=== PATIENT | female | born 1985 | race Caucasian/White ===

== ENCOUNTER 2017-11-18 21:26 | Emergency (ER) | payer OTHER ==
[2017-11-18 21:40] VITALS: BP 135/69; PULSE 73; TEMP 98; BMI 28.3
--- NOTE | 2017-11-18 21:52 | PDOC ---
Attending Attestation - HPI HPI: 11/19/17 01:01 The patient is a 32 year old female with a significant past medical history of hyperlipidemia, anemia and scoliosis who presents to the emergency department for evaluation of right side pain. The patient reports a 2 week history of moderate right sided pain. She describes the pain as intermittent, dull, ranked 7/10 in severity. Pt reports right side pain is exacerbated when bends over or stands straight, and reports alleviation when seated. The patient reports a 3 day history of dysuria. She reports a decrease in appetite because of her anxiety surrounding her current medical condition. Pt reports an associated symptom of nausea. Of note, the patients LMP was 11/13/17, but notes it was heavier than normal, lasting 10 days. The patient denies history of kidney stones, chest pain, shortness of breath, headache, and dizziness. Denies fever, chills, vomiting, diarrhea, melanoma, and constipation. Denies hematuria, and urinary urgency/frequency. Allergies: NKDA. Social History: No reported alcohol, cigarette, or drug use. Surgical History: PCP: Dr. Karma Curry - Physicial Exam PE: GENERAL: Afebrile. Awake, alert, and fully oriented, in no acute distress HEAD: No signs of trauma EYES: PERRLA, EOMI, sclera anicteric, conjunctiva clear ENT: Auricles normal inspection, hearing grossly normal, nares patent, oropharynx clear without exudates. Moist mucosa NECK: Normal ROM, supple. LUNGS: Breath sounds equal, clear to auscultation bilaterally. No wheezes, and no crackles HEART: Regular rate and rhythm, normal S1 and S2, no murmurs, rubs or gallops ABDOMEN: Soft, nontender, normoactive bowel sounds. No guarding, no rebound. No masses EXTREMITIES: Normal range of motion, no edema. No clubbing or cyanosis. No cords, erythema, or tenderness NEUROLOGICAL: Cranial nerves II through XII grossly intact. Normal speech, normal gait SKIN: Warm, Dry, normal turgor, no rashes or lesions noted. <Jana Duran - Last Filed: 11/19/17 01:01> - Resident Resident Name: José Luis Titus - ED Attending Attestation I have performed the following: I have examined & evaluated the patient, The case was reviewed & discussed with the resident, I agree w/resident's findings & plan - Medical Decision Making 11/18/17 23:17 Pt comes with 2 weeks of right flank and side pain. 3 days of dysuria. No fam hx or personal hx of stones. SHe will have labs and UA and UCG. We will get a renal protocol CT scan. 11/19/17 02:41 Patient Name: JOSH GARCIA THIS IS A PRELIMINARY REPORT FROM [facility] DATE OF SERVICE: 2017-11-19 01:35:03 IMAGES: [id number] EXAM: CT abdomen and pelvis without contrast HISTORY: Right sided abdominal pain and dysuria COMPARISON: None. FINDINGS: Abdomen Liver: Normal Spleen: Normal Pancreas: Normal Gallbladder: Normal Stomach: Normal Small bowel: Normal Large bowel: Normal Appendix: Normal Adrenals:Normal Kidneys: There are small bilateral nonobstructing calyceal stones. There is some renal medullary. Density suggesting medullary sponge kidney Vascular: Normal Lymphatic: Normal Peritoneal: No free peritoneal air or fluid Pelvis: Uterus: normal Rectum: Normal Bladder: Normal The inferior thorax: Normal General: Skeletal: Normal Abdominal wall: Normal IMPRESSION: Nephrolithiasis Individualized dose optimization techniques were used for this CT. THIS DOCUMENT HAS BEEN ELECTRONICALLY SIGNED 11/20/17 04:17 Pt is stable for discharge. <Lisette Patel - Last Filed: 11/20/17 04:18> Attestations - Attestations Documentation prepared by Jana Duran, acting as medical administrative assistant for Lisette Patel MD. <Jana Duran - Last Filed: 11/19/17 01:01>
[2017-11-18] MEDS ORDERED: morphine SULFATE 4 MG/ML VIAL ONE (22:36)
[2017-11-18] MEDS: morphine CARPU-JECT 4 MG/1 ML DISP.SYRIN IVPUSH ONE ×2 (22:36→22:50)
[2017-11-18] MEDS ORDERED: METOCLOPRAMIDE HCL INJECTION 10 MG/2 ML VIAL ONE (22:36)
[2017-11-18] MEDS: METOCLOPRAMIDE HCL INJECTION 10 MG/2 ML VIAL IVPUSH ONE ×2 (22:36→22:49)
[2017-11-18] MEDS ORDERED: ACETAMINOPHEN 325 MG TABLET (FP) PO ONE (22:51)
[2017-11-18] MEDS ORDERED: ACETAMINOPHEN 325 MG TABLET (FP) ONE (22:57)
[2017-11-18 22:59] LABS: BASO % 1.2 % (0-2.0); EOS % 6.8 % (0-4.5); HEMOGLOBIN 10.7 GM/dL (10.7-15.3); LYMPH % 29.5 % (8-40); MCH 20.7 pg (25.7-33.7); MCHC 31.6 g/dl (32.0-36.0); MEAN CELL VOLUME 65.4 fl (80-96); MEAN PLT VOLUME 9.9 fl (7.5-11.1); MONO % 5.2 % (3.8-10.2); NEUT % 57.3 % (42.8-82.8); PLATELET COUNT 299 K/MM3 (134-434); RDW 15.1 % (11.6-15.6); WHITE BLOOD COUNT 11.8 K/mm3 (4.0-10.0)
[2017-11-18 23:25] LABS: ALBUMIN 3.9 g/dl (3.4-5.0); ANION GAP 7 (8-16); BILIRUBIN,TOTAL 0.6 mg/dL (0.2-1.0); BLOOD UREA NITROGEN 17 mg/dL (7-18); CALCIUM 8.9 mg/dL (8.5-10.1); CHLORIDE 106 mmol/L (98-107); CO2 26 mmol/L (21-32); CREATININE 0.7 mg/dL (0.55-1.02); GLUCOSE,RANDOM 86 mg/dL (74-106); POTASSIUM 4.4 mmol/L (3.5-5.1); SGOT/AST 14 U/L (15-37); SGPT/ALT 20 U/L (12-78); SODIUM 139 mmol/L (136-145); TOT PROT 7.9 g/dl (6.4-8.2)
[2017-11-18 23:26] LABS: ALK PHOS 83 U/L (45-117)
[2017-11-18 23:52] LABS: URINE APPEARANCE CLEAR; URINE BILIRUBIN NEGATIVE (<2.0 mg/dL); URINE COLOR YELLOW; URINE GLUCOSE (UA) NEGATIVE (NEGATIVE); URINE KETONE NEGATIVE (NEGATIVE); URINE LEUK ESTERASE NEGATIVE (NEGATIVE); URINE NITRITE NEGATIVE (NEGATIVE); URINE PROTEIN NEGATIVE (NEGATIVE); URINE UROBILINOGEN NEGATIVE mg/dL (0.2-1.0)
[2017-11-18 23:57] LABS: ANISOCYTOSIS 2+; PLATELET ESTIMATE ADEQUATE
[2017-11-18 23:59] LABS: HCG,QUALITATIVE URINE NEGATIVE
--- NOTE | 2017-11-19 00:09 | PDOC ---
History of Present Illness - General Chief Complaint: Pain, Acute Stated Complaint: LOWER BACK PAIN Time Seen by Provider: 11/18/17 21:52 History Source: Patient Exam Limitations: No Limitations - History of Present Illness Initial Comments: 11/19/17 00:04 Ms. Ellison is a 32 yo F with a hx of scoliosis and HLD who presented to the ED with right lower abdominal pain that has been ongoing for 2 weeks. She states it has been constant with fluctuations in intensity of pain. It is described as dull, non radiating, located in the right flank/posterior axial line, non radiating, worsens with movements, and rated as a 7/10. She is currently sexually active with a LMP 5 days ago. The following are negative: vaginal discharge/bleeding, fevers, constipation, vomiting, melena, hx of kidney stones. She endorses a hx of scoliosis and having dysuria for the past 3 days. Pmhx: HLD, scoliosis Shx: Rhinoplasty 2018 Meds: None Allergies: None Social: No smoking, alcohol, or recreational drug use. Past History - Past Medical History Allergies/Adverse Reactions: Allergies Allergy/AdvReac Type Severity Reaction Status Date / Time No Known Allergies Allergy Verified 11/18/17 21:40 Home Medications: Ambulatory Orders NK [No Known Home Medication] 11/19/17 Anemia: Yes - Suicide/Smoking/Psychosocial Hx Smoking Status: No Smoking History: Never smoked Have you smoked in the past 12 months: No Number of Cigarettes Smoked Daily: 0 Information on smoking cessation initiated: No Hx Alcohol Use: No Drug/Substance Use Hx: No Review of Systems - Review of Systems Able to Perform ROS?: Yes Is the patient limited Luxembourgish proficient: No Constitutional: No: Chills, Fever, Unexplained wgt Loss HEENTM: No: Recent change in vision, Throat Pain Respiratory: No: Cough, Shortness of Breath, SOB with Exertion, Hemoptysis Cardiac (ROS): No: Chest Pain, Palpitations ABD/GI: Yes: Diarrhea, Nausea. No: Abd. Pain w/ defecation, Constipated, Rectal Bleeding, Vomiting, Tarry Stools : Yes: Dysuria, Flank Pain (Right side). No: Hematuria Musculoskeletal: No: Back Pain, Joint Swelling Integumentary: No: Rash Neurological: No: Headache Endocrine: No: Unexplained Weight Gain *Physical Exam - Vital Signs Last Vital Signs Temp Pulse Resp BP Pulse Ox 98.0 F 73 16 135/69 100 11/18/17 21:38 11/18/17 21:38 11/18/17 21:38 11/18/17 21:38 11/18/17 21:38 - Physical Exam General Appearance: Yes: Nourished HEENT: positive: EOMI (Intact), NADEEN Neck: negative: Lymphadenopathy (R), Lymphadenopathy (L) Respiratory/Chest: positive: Lungs Clear, Normal Breath Sounds. negative: Crackles, Rales, Wheezing Cardiovascular: positive: Regular Rhythm, Regular Rate, S1, S2. negative: Murmur, Systolic Murmur Gastrointestinal/Abdominal: positive: Normal Bowel Sounds, Tender (RUQ lateral side. ) Lymphatic: negative: Adenopathy Musculoskeletal: positive: CVA Tenderness (right side) Extremity: positive: Normal Inspection Integumentary: positive: Normal Color Neurologic: positive: Fully Oriented, Alert, Normal Mood/Affect ED Treatment Course - LABORATORY CBC & Chemistry Diagram: 11/18/17 22:40 11/18/17 22:40 - ADDITIONAL ORDERS Additional order review: Laboratory Results 11/18/17 11/18/17 23:30 22:40 Sodium 139 Potassium 4.4 Chloride 106 Carbon Dioxide 26 Anion Gap 7 L BUN 17 Creatinine 0.7 Creat Clearance w eGFR > 60 Random Glucose 86 Calcium 8.9 Total Bilirubin 0.6 AST 14 L ALT 20 Alkaline Phosphatase 83 Total Protein 7.9 Albumin 3.9 Urine Color Yellow Urine Appearance Clear Urine pH 5.0 Ur Specific [place] 1.026 Urine Protein Negative Urine Glucose (UA) Negative Urine Ketones Negative Urine Blood Negative Urine Nitrite Negative Urine Bilirubin Negative Urine Urobilinogen Negative Ur Leukocyte Esterase Negative Urine HCG, Qual Negative 11/18/17 22:40 RBC 5.20 MCV 65.4 L MCHC 31.6 L RDW 15.1 MPV 9.9 Neutrophils % 57.3 Lymphocytes % 29.5 Monocytes % 5.2 Eosinophils % 6.8 H Basophils % 1.2 - Medications Given in the ED: ED Medications Discontinued Medications Generic Name Dose Route Start Last Admin Trade Name Freq PRN Reason Stop Dose Admin Acetaminophen 650 mg 11/18/17 22:51 11/18/17 22:56 Tylenol - PO 11/18/17 22:52 650 mg ONCE ONE Administration Metoclopramide HCl 10 mg 11/18/17 22:26 11/18/17 22:49 Reglan Injection - IVPUSH 11/18/17 22:27 Not Given ONCE ONE Morphine Sulfate 4 mg 11/18/17 22:26 11/18/17 22:50 Morphine Injection - IVPUSH 11/18/17 22:27 Not Given ONCE ONE Medical Decision Making - Medical Decision Making 11/20/17 01:19 32 yo F with past medical history of scoliosis and hyperlipidemia who presents to the ED with R flank pain for the past 2 weeks. Initial vitals: Initial Vital Signs Temp Pulse Resp BP Pulse Ox 98.0 F 73 16 135/69 100 11/18/17 21:38 11/18/17 21:38 11/18/17 21:38 11/18/17 21:38 11/18/17 21:38 Workup: A CBC, urine bhcg, CMP, UA, urine culture, CT renal stone ordered. bHCG was negative. Laboratory Last Values WBC 11.8 K/mm3 (4.0-10.0) H 11/18/17 22:40 RBC 5.20 M/mm3 (3.60-5.2) 11/18/17 22:40 Hgb 10.7 GM/dL (10.7-15.3) 11/18/17 22:40 Hct 34.0 % (32.4-45.2) 11/18/17 22:40 MCV 65.4 fl (80-96) L 11/18/17 22:40 MCH 20.7 pg (25.7-33.7) L 11/18/17 22:40 MCHC 31.6 g/dl (32.0-36.0) L 11/18/17 22:40 RDW 15.1 % (11.6-15.6) 11/18/17 22:40 Plt Count 299 K/MM3 (134-434) 11/18/17 22:40 MPV 9.9 fl (7.5-11.1) 11/18/17 22:40 Absolute Neuts (auto) 6.8 # 11/18/17 22:40 Neutrophils % 57.3 % (42.8-82.8) 11/18/17 22:40 Lymphocytes % 29.5 % (8-40) 11/18/17 22:40 Monocytes % 5.2 % (3.8-10.2) 11/18/17 22:40 Eosinophils % 6.8 % (0-4.5) H 11/18/17 22:40 Basophils % 1.2 % (0-2.0) 11/18/17 22:40 Nucleated RBC % 0 % (0-0) 11/18/17 22:40 Hypochromia 1+ 11/18/17 22:40 Platelet Estimate Adequate 11/18/17 22:40 Platelet Comment No clotting detected 11/18/17 22:40 Polychromasia 1+ 11/18/17 22:40 Anisocytosis 2+ 11/18/17 22:40 Microcytosis 2+ 11/18/17 22:40 Sodium 139 mmol/L (136-145) 11/18/17 22:40 Potassium 4.4 mmol/L (3.5-5.1) 11/18/17 22:40 Chloride 106 mmol/L (98-107) 11/18/17 22:40 Carbon Dioxide 26 mmol/L (21-32) 11/18/17 22:40 Anion Gap 7 (8-16) L 11/18/17 22:40 BUN 17 mg/dL (7-18) 11/18/17 22:40 Creatinine 0.7 mg/dL (0.55-1.02) 11/18/17 22:40 Creat Clearance w eGFR > 60 (>60) 11/18/17 22:40 Random Glucose 86 mg/dL (74-106) 11/18/17 22:40 Calcium 8.9 mg/dL (8.5-10.1) 11/18/17 22:40 Total Bilirubin 0.6 mg/dL (0.2-1.0) 11/18/17 22:40 AST 14 U/L (15-37) L 11/18/17 22:40 ALT 20 U/L (12-78) 11/18/17 22:40 Alkaline Phosphatase 83 U/L (45-117) 11/18/17 22:40 Total Protein 7.9 g/dl (6.4-8.2) 11/18/17 22:40 Albumin 3.9 g/dl (3.4-5.0) 11/18/17 22:40 Urine Color Yellow 11/18/17 23:30 Urine Appearance Clear 11/18/17 23:30 Urine pH 5.0 (5.0-8.0) 11/18/17 23:30 Ur Specific [place] 1.026 (1.001-1.035) 11/18/17 23:30 Urine Protein Negative (NEGATIVE) 11/18/17 23:30 Urine Glucose (UA) Negative (NEGATIVE) 11/18/17 23:30 Urine Ketones Negative (NEGATIVE) 11/18/17 23:30 Urine Blood Negative (NEGATIVE) 11/18/17 23:30 Urine Nitrite Negative (NEGATIVE) 11/18/17 23:30 Urine Bilirubin Negative (<2.0 mg/dL) 11/18/17 23:30 Urine Urobilinogen Negative mg/dL (0.2-1.0) 11/18/17 23:30 Ur Leukocyte Esterase Negative (NEGATIVE) 11/18/17 23:30 Urine HCG, Qual Negative 11/18/17 23:[address] Boris Zimmer. 11/20/17 01:21 *DC/Admit/Observation/Transfer Diagnosis at time of Disposition: Nephrolithiasis - Discharge Dispostion Disposition: HOME Condition at time of disposition: Stable - Referrals Referrals: Sean Callahan MD [Staff Physician] - - Patient Instructions Printed Discharge Instructions: Kidney Stones -- Adult - Post Discharge Activity
--- NOTE | 2017-11-19 02:26 | PDOC ---
*Physical Exam - Vital Signs Last Vital Signs Temp Pulse Resp BP Pulse Ox 98.0 F 73 16 135/69 100 11/18/17 21:38 11/18/17 21:38 11/18/17 21:38 11/18/17 21:38 11/18/17 21:38 <Russell Zimmery - Last Filed: 11/19/17 02:26> - Vital Signs Last Vital Signs Temp Pulse Resp BP Pulse Ox 98.0 F 73 16 135/69 100 11/18/17 21:38 11/18/17 21:38 11/18/17 21:38 11/18/17 21:38 11/18/17 21:38 <PatelLisette - Last Filed: 11/19/17 02:43> ED Treatment Course - LABORATORY CBC & Chemistry Diagram: 11/18/17 22:40 11/18/17 22:40 - ADDITIONAL ORDERS Additional order review: Laboratory Results 11/18/17 11/18/17 23:30 22:40 Sodium 139 Potassium 4.4 Chloride 106 Carbon Dioxide 26 Anion Gap 7 L BUN 17 Creatinine 0.7 Creat Clearance w eGFR > 60 Random Glucose 86 Calcium 8.9 Total Bilirubin 0.6 AST 14 L ALT 20 Alkaline Phosphatase 83 Total Protein 7.9 Albumin 3.9 Urine Color Yellow Urine Appearance Clear Urine pH 5.0 Ur Specific [place] 1.026 Urine Protein Negative Urine Glucose (UA) Negative Urine Ketones Negative Urine Blood Negative Urine Nitrite Negative Urine Bilirubin Negative Urine Urobilinogen Negative Ur Leukocyte Esterase Negative Urine HCG, Qual Negative 11/18/17 22:40 RBC 5.20 MCV 65.4 L MCHC 31.6 L RDW 15.1 MPV 9.9 Neutrophils % 57.3 Lymphocytes % 29.5 Monocytes % 5.2 Eosinophils % 6.8 H Basophils % 1.2 - Medications Given in the ED: ED Medications Discontinued Medications Generic Name Dose Route Start Last Admin Trade Name Freq PRN Reason Stop Dose Admin Acetaminophen 650 mg 11/18/17 22:51 11/18/17 22:56 Tylenol - PO 11/18/17 22:52 650 mg ONCE ONE Administration Metoclopramide HCl 10 mg 11/18/17 22:26 11/18/17 22:49 Reglan Injection - IVPUSH 11/18/17 22:27 Not Given ONCE ONE Morphine Sulfate 4 mg 11/18/17 22:26 11/18/17 22:50 Morphine Injection - IVPUSH 11/18/17 22:27 Not Given ONCE ONE <Boris Zimmer - Last Filed: 11/19/17 02:26> - LABORATORY CBC & Chemistry Diagram: 11/18/17 22:40 11/18/17 22:40 - ADDITIONAL ORDERS Additional order review: Laboratory Results 11/18/17 11/18/17 23:30 22:40 Sodium 139 Potassium 4.4 Chloride 106 Carbon Dioxide 26 Anion Gap 7 L BUN 17 Creatinine 0.7 Creat Clearance w eGFR > 60 Random Glucose 86 Calcium 8.9 Total Bilirubin 0.6 AST 14 L ALT 20 Alkaline Phosphatase 83 Total Protein 7.9 Albumin 3.9 Urine Color Yellow Urine Appearance Clear Urine pH 5.0 Ur Specific [place] 1.026 Urine Protein Negative Urine Glucose (UA) Negative Urine Ketones Negative Urine Blood Negative Urine Nitrite Negative Urine Bilirubin Negative Urine Urobilinogen Negative Ur Leukocyte Esterase Negative Urine HCG, Qual Negative 11/18/17 22:40 RBC 5.20 MCV 65.4 L MCHC 31.6 L RDW 15.1 MPV 9.9 Neutrophils % 57.3 Lymphocytes % 29.5 Monocytes % 5.2 Eosinophils % 6.8 H Basophils % 1.2 - RADIOLOGY Radiology Studies Ordered: Category Date Time Status SPIRAL- RENAL-STONE CT [CT] Stat CT Scan 11/19/17 01:02 Taken - Medications Given in the ED: ED Medications Discontinued Medications Generic Name Dose Route Start Last Admin Trade Name Cesarq PRN Reason Stop Dose Admin Acetaminophen 650 mg 11/18/17 22:51 11/18/17 22:56 Tylenol - PO 11/18/17 22:52 650 mg ONCE ONE Administration Metoclopramide HCl 10 mg 11/18/17 22:26 11/18/17 22:49 Reglan Injection - IVPUSH 11/18/17 22:27 Not Given ONCE ONE Morphine Sulfate 4 mg 11/18/17 22:26 11/18/17 22:50 Morphine Injection - IVPUSH 11/18/17 22:27 Not Given ONCE ONE <Lisette Patel - Last Filed: 11/19/17 02:43> Medical Decision Making - Medical Decision Making 11/19/17 02:26 multiple non-obstructing stones. Otherwise negative ct scan. <Boris Zimmer - Last Filed: 11/19/17 02:26> *DC/Admit/Observation/Transfer <Boris Zimmer - Last Filed: 11/19/17 02:26> - Discharge Dispostion Decision to Admit order: No <Lisette Patel - Last Filed: 11/19/17 02:43> Diagnosis at time of Disposition: Nephrolithiasis - Discharge Dispostion Disposition: HOME Condition at time of disposition: Stable - Referrals Referrals: Sean Callahan MD [Staff Physician] - - Patient Instructions Printed Discharge Instructions: Kidney Stones -- Adult
== END 2017-11-19 02:53 | disposition home or self-care (01) ==
LOC: JER 21:26
DX: N20.0 Calculus of kidney (principal); E78.5 Hyperlipidemia, unspecified; D64.9 Anemia, unspecified; M41.9 Scoliosis, unspecified
CPT/HCPCS: 36415; 74176; 80053; 81003; 84703; 85025; 87086; 99282-25

== ENCOUNTER 2018-08-04 12:18 | Emergency (ER) | payer OTHER ==
[2018-08-04 12:30] VITALS: TEMP 98.5; BMI 29.2
[2018-08-04] MEDS ORDERED: ACETAMINOPHEN 1000 MG/100 ML VIAL (NON FORMULARY) IVPB ONE (13:12)
[2018-08-04] MEDS ORDERED: SODIUM CHLORIDE 1,000 ML IV STA (13:12)
[2018-08-04] MEDS ORDERED: ACETAMINOPHEN INJECTION 100 ML IVPB ONE (13:21)
--- NOTE | 2018-08-04 13:36 | PDOC ---
*Physical Exam - Vital Signs Last Vital Signs Temp Pulse Resp BP Pulse Ox 98.5 F 90 18 111/78 96 08/04/18 12:28 08/04/18 12:28 08/04/18 12:28 08/04/18 12:28 08/04/18 12:28 ED Treatment Course - LABORATORY CBC & Chemistry Diagram: 08/04/18 13:34 08/04/18 13:34 Medical Decision Making - Medical Decision Making 08/04/18 13:36 33 yo F h/o kidney stone Pt has had left flank pain x 1 week Pt seen by Midlevel Provider under my direct supervision Pt interviewed and examined Ancillary studies reviewed I agree with plan as outlined by Midlevel Provider 08/04/18 14:13 Laboratory Tests 08/04/18 08/04/18 08/04/18 13:34 13:34 13:34 WBC 12.8 H Hgb 11.6 Hct 34.9 Plt Count 301 BUN 16 Creatinine 0.5 L Urine HCG, Qual Negative Spiral CT no obstructive stone Will discharge to home Musculoskeletal pain *DC/Admit/Observation/Transfer Diagnosis at time of Disposition: Flank pain - Discharge Dispostion Disposition: HOME Condition at time of disposition: Stable - Referrals Referrals: Karma Curry MD [Primary Care Provider] - 2 Days - Patient Instructions Printed Discharge Instructions: DI for Flank Pain Additional Instructions: Thank you for choosing [facility]. It was a pleasure taking care of you. Your CT scan showed no evidence of stones It is possible your pain may be muscular in nature Take Motrin as needed for pain You may also apply warm compresses Follow-up with your doctor for further evaluation of your symptoms Return to the Emergency Department if your symptoms worsen or persist or have other concerning symptoms. - Post Discharge Activity
[2018-08-04 13:55] LABS: BASO % 0.6 % (0-2.0); EOS % 5.7 % (0-4.5); HEMATOCRIT 34.9 % (32.4-45.2); HEMOGLOBIN 11.6 GM/dL (10.7-15.3); LYMPH % 19.4 % (8-40); MCH 21.8 pg (25.7-33.7); MCHC 33.1 g/dl (32.0-36.0); MEAN CELL VOLUME 65.9 fl (80-96); MEAN PLT VOLUME 10.2 fl (7.5-11.1); MONO % 5.4 % (3.8-10.2); NEUT % 68.9 % (42.8-82.8); PLATELET COUNT 301 K/MM3 (134-434); RBC 5.29 M/mm3 (3.60-5.2); RDW 15.3 % (11.6-15.6); WHITE BLOOD COUNT 12.8 K/mm3 (4.0-10.0)
--- NOTE | 2018-08-04 14:01 | PDOC ---
History of Present Illness - General Chief Complaint: Back Pain Stated Complaint: RT SIDE LOWER BACK PAIN Time Seen by Provider: 08/04/18 13:00 History Source: Patient Exam Limitations: No Limitations Past History - Past Medical History Allergies/Adverse Reactions: Allergies Allergy/AdvReac Type Severity Reaction Status Date / Time banana Allergy Intermediate Swelling Verified 08/04/18 12:28 No Known Drug Allergies Allergy Verified 08/04/18 12:28 [place]acado Allergy Intermediate Swelling Uncoded 08/04/18 12:28 Home Medications: Ambulatory Orders Ferrous Sulfate [Feosol] 325 mg PO DAILY 12/21/17 Norgestimate-Ethinyl Estradiol [Sprintec 28 Day Tablet] 1 each PO DAILY Anemia: Yes COPD: No Disorders: Yes (STONES) Thyroid Disease: No Other medical history: scoliosis - Suicide/Smoking/Psychosocial Hx Smoking Status: No Smoking History: Never smoked Have you smoked in the past 12 months: No Number of Cigarettes Smoked Daily: 0 Hx Alcohol Use: Yes (OCC) Drug/Substance Use Hx: No Substance Use Type: Alcohol *Physical Exam - Vital Signs Last Vital Signs Temp Pulse Resp BP Pulse Ox 98.5 F 90 18 111/78 96 08/04/18 12:28 08/04/18 12:28 08/04/18 12:28 08/04/18 12:28 08/04/18 12:28 - Physical Exam General Appearance: No: Apparent Distress Respiratory/Chest: positive: Lungs Clear, Normal Breath Sounds. negative: Respiratory Distress Cardiovascular: positive: Regular Rhythm, Regular Rate, S1, S2. negative: Murmur Gastrointestinal/Abdominal: positive: Normal Bowel Sounds, Soft. negative: Tender, Distended, Guarding, Rebound Musculoskeletal: positive: CVA Tenderness (R). negative: CVA Tenderness (L) Integumentary: positive: Normal Color Neurologic: positive: Alert, Normal Mood/Affect Moderate Sedation - Procedure Monitoring Vital Signs: Procedure Monitoring Vital Signs Temperature 98.5 F 08/04/18 12:28 Pulse Rate 90 08/04/18 12:28 Respiratory Rate 18 08/04/18 12:28 Blood Pressure 111/78 08/04/18 12:28 O2 Sat by Pulse Oximetry (%) 96 08/04/18 12:28 ED Treatment Course - LABORATORY CBC & Chemistry Diagram: 08/04/18 13:34 08/04/18 13:34 - Medications Given in the ED: ED Medications Discontinued Medications Generic Name Dose Route Start Last Admin Trade Name Juanis PRN Reason Stop Dose Admin Acetaminophen 1,000 mg 08/04/18 13:12 08/04/18 13:42 Ofirmev Injection - IVPB 08/04/18 13:13 1,000 mg ONCE ONE Administration Medical Decision Making - Medical Decision Making 33 y/o F hx of R kidney stones s/p lithotripsy (believes it was sometime around May 2018), anemia, scoliosis presents with R flank pain x 1.5 weeks. Has been using Alleve with minimal relief of pain. States pain feels worse than usual kidney stones. Denies fever, chills, sob, cp, abd pain, n/v/d, hematuria, dysuria. Consider nephrolithiasis; less suspicious for pyelonephritis, PNA Plan: Labs, IVF, Tylenol, UA, UCG 08/04/18 14:02 Labs unremarkable other than slight leukocytosis UA negative CT A/P with no kidney stones or other acute pathology Possible MSK pain as it seems to worsen with movement of body Stable for dc 08/04/18 16:09 *DC/Admit/Observation/Transfer Diagnosis at time of Disposition: Flank pain - Discharge Dispostion Disposition: HOME Condition at time of disposition: Stable Decision to Admit order: No - Referrals Referrals: Karma Curry MD [Primary Care Provider] - 2 Days - Patient Instructions Printed Discharge Instructions: DI for Flank Pain Additional Instructions: Thank you for choosing [facility]. It was a pleasure taking care of you. Your CT scan showed no evidence of stones It is possible your pain may be muscular in nature Take Motrin as needed for pain You may also apply warm compresses Follow-up with your doctor for further evaluation of your symptoms Return to the Emergency Department if your symptoms worsen or persist or have other concerning symptoms. - Post Discharge Activity
[2018-08-04 14:04] LABS: HCG,QUALITATIVE URINE Negative
[2018-08-04 14:08] LABS: ANION GAP 5 MMOL/L (8-16); BLOOD UREA NITROGEN 16 mg/dL (7-18); CALCIUM 8.8 mg/dL (8.5-10.1); CHLORIDE 104 mmol/L (98-107); CO2 26 mmol/L (21-32); CREATININE 0.5 mg/dL (0.55-1.3); GLUCOSE,RANDOM 82 mg/dL (74-106); SODIUM 135 mmol/L (136-145)
[2018-08-04 14:13] LABS: URINE APPEARANCE CLOUDY; URINE BILIRUBIN 1+ (<2.0 mg/dL); URINE COLOR DK YELLOW; URINE GLUCOSE (UA) NEGATIVE (NEGATIVE); URINE KETONE TRACE (NEGATIVE); URINE LEUK ESTERASE NEGATIVE (NEGATIVE); URINE NITRITE NEGATIVE (NEGATIVE); URINE PROTEIN NEGATIVE (NEGATIVE)
[2018-08-04] MEDS ORDERED: KETOROLAC TROMETHAMINE 30 MG/1 ML VIAL IVPUSH ONE (15:12)
[2018-08-04 15:16] LABS: ANISOCYTOSIS 1+; MACROCYTOSIS 0; OVALOCYTE 1+; PLATELET ESTIMATE NORMAL
[2018-08-04] MEDS ORDERED: KETOROLAC TROMETHAMINE 30 MG/1 ML VIAL ONE (15:31)
[2018-08-04 16:23] VITALS: BP 110/76; PULSE 82
== END 2018-08-04 16:23 | disposition home or self-care (01) ==
LOC: JER 12:18
PROC: 3E033NZ Introduction of Analgesics, Hypnotics, Sedatives into Peripheral Vein, Percutaneous Approach (ICD-10-PCS; principal; 2018-08-04)
PROC: 3E0333Z Introduction of Anti-inflammatory into Peripheral Vein, Percutaneous Approach (ICD-10-PCS; 2018-08-04)
DX: R10.31 Right lower quadrant pain (principal); D64.9 Anemia, unspecified; Z87.442 Personal history of urinary calculi
CPT/HCPCS: 36415; 74176-TC; 80048; 81003; 84703; 85025; 96374; 96375; 99282-25; J0131; J7030

== ENCOUNTER 2019-01-22 17:05 | Emergency (ER) | payer OTHER | END 2019-01-22 20:26 | disposition home or self-care (01) | LOC: JER 17:05 ==